=== PATIENT | male | born 1945 | race Caucasian/White ===

== ENCOUNTER → 2018-02-06 | Outpatient (CLI) | payer MEDICARE ==
[~2018-02-06] MED LIST: ACYC400T PO; AEC81 PO; ASCO500T9 PO; ATOM60CA PO; ATOR20TA65 PO; CALC-190 PO; CARV25TA PO; CYAN500 PO; ELET40TA PO; FISH1CAP50 PO; GLUC-172 PO; MAGN100T5 PO; MULT1TAB70 PO; RAMI10CA69 PO; RIVA20TA PO; SAW450CA7 PO; TERA5CAP4 PO; UBID100C45 PO; VITA1CAP85 PO; iron PO
== END | disposition home or self-care (01) ==
LOC: RAH 13:55
PROVIDERS: ATTEND Orthopaedic Surgery
DX: S83.242A Other tear of medial meniscus, current injury, left knee, initial encounter (principal); S80.02XA Contusion of left knee, initial encounter; X58.XXXA Exposure to other specified factors, initial encounter; Y93.89 Activity, other specified; Y92.89 Other specified places as the place of occurrence of the external cause; Y99.8 Other external cause status; M25.462 Effusion, left knee
CPT/HCPCS: 73721

== ENCOUNTER 2018-03-12 06:45 | Day surgery (SDC) | payer MEDICARE ==
[2018-03-06 10:56] VITALS: BP 119/72
[2018-03-06 11:06] LABS: BASOPHILS % (AUTO) 0.2 % (0.0-5.0); EOSINOPHILS % (AUTO) 0.8 % (0.0-8.0); HEMATOCRIT 43.3 % (42-54); LYMPHOCYTES % (AUTO) 17.4 % (21.0-51.0); MEAN CORPUSCULAR HEMOGLOBIN 33.9 pg (27.0-33.0); MEAN CORPUSCULAR HGB CONC 33.9 g/dL (32.0-36.0); MONOCYTES % (AUTO) 7.5 % (3.0-13.0); NEUTROPHILS % (AUTO) 74.1 % (40.0-77.0); NUCLEATED RED BLOOD CELLS 0.1 % (0.0-0.19); PLATELET COUNT (AUTO) 265 K/uL (130-400); RED BLOOD CELL COUNT(AUTO) 4.33 MIL/uL (4.50-6.20); RED CELL DISTRIBUTION WIDTH 13.1 % (11.0-15.5)
[2018-03-06 11:18] LABS: CREATININE 0.8 mg/dL (0.5-1.5); POTASSIUM 4.8 mmol/L (3.5-5.1)
[2018-03-12] VITALS (14 sets, daily range): BP systolic 109–140; BP diastolic 68–86
[~2018-03-12] VITALS: Ht 182.9 cm; Wt 86.0 kg
[2018-03-12] MEDS: CEFAZOLIN SODIUM 1 GM VIAL IVP SCH ×2 (05:00→08:25)
[~2018-03-12 06:45] MED LIST changes: -AEC81 PO; +AMLO5TAB9 PO; -CYAN500 PO; +IRON PEG; -iron PO
[2018-03-12] MEDS ORDERED: LACTATED RINGERS 1000ML 1,000 ML IV ONE (07:11)
[2018-03-12] MEDS ORDERED: MIDAZOLAM HCL 1 MG/ML 2ML VIAL ONE (07:24)
[2018-03-12] MEDS ORDERED: LIDOCAINE PF 2% 5ML ABBOJECT ONE (07:24)
[2018-03-12] MEDS ORDERED: PROPOFOL 10 MG/ML 20ML VIAL IV ONE (07:24)
[2018-03-12] MEDS ORDERED: ONDANSETRON HCL 4 MG/2 ML VIAL ONE (07:24)
[2018-03-12] MEDS ORDERED: FENTANYL CITRATE PF 50 MCG/1 ML 2ML VIAL ONE (07:25)
[2018-03-12] MEDS ORDERED: ROCURONIUM 10MG/1ML SYR 10 MG/ML ML ONE (07:25)
[2018-03-12] MEDS ORDERED: BUPIVACAINE/EPI/PF 0.25% 50 ML VIAL ONE (07:35)
[2018-03-12] MEDS ORDERED: EPHEDRINE SULFATE 50 MG/ML AMPULE ONE (08:34)
[2018-03-12] MEDS ORDERED: PHENYLEPHRINE HCL 10 MG/ML 1ML VIAL IV ONE (08:44)
[2018-03-12] MEDS ORDERED: NEOSTIGMINE 5MG/5ML SYR IV ONE (08:58)
[2018-03-12] MEDS ORDERED: GLYCOPYRROLATE 1 MG/5 ML SYRINGE ONE (08:58)
--- NOTE | 2018-03-12 10:15 | NUR ---
NEW PT received pt from PACU, S/P LEFT knee arthrsocopy left knee dressing dry and intact, neurovascular checks wnl to left lower extremity, pt awake and alert in bed, vs stable. will continue to monitor
--- NOTE | 2018-03-12 10:46 | NUR ---
dc dc instructions given to pt / pts spouse with rx, instructed to f/ u with dr. reynolds. and hard copy of knee arthroscopy orders given to them in detailed, pt /spouse verbalized understanding. piv removed, catheter intact, site asymtomatic, pt getting dress and will be discharge
--- NOTE | 2018-03-12 10:55 | NUR ---
dc pt dc home via w/c ,no distress noted. pt has crutches already form home . accompanied by spouse .
== END 2018-03-12 10:55 | disposition home or self-care (01) ==
LOC: DAH 06:45
PROVIDERS: ATTEND Orthopaedic Surgery
DX: M23.204 Derangement of unspecified medial meniscus due to old tear or injury, left knee (principal); M23.201 Derangement of unspecified lateral meniscus due to old tear or injury, left knee; M22.42 Chondromalacia patellae, left knee; Z79.899 Other long term (current) drug therapy; Z98.890 Other specified postprocedural states; E78.00 Pure hypercholesterolemia, unspecified; I10 Essential (primary) hypertension; I48.91 Unspecified atrial fibrillation; M19.90 Unspecified osteoarthritis, unspecified site
CPT/HCPCS: 29880; 36415; 80048; 85025; A4218; A4248; A4606; A4649 ×3; A4930; A6223; J0690; J2001; J2250; J2370; J2405; J2704; J2710; J3010; J3490 ×3; J7120 ×2

== ENCOUNTER 2019-08-05 09:03 | Day surgery (SDC) | payer MEDICARE ==
[2019-08-02 09:35] VITALS: BP 99/75; PULSE 77; RESP 18; TEMP 97.2
[~2019-08-05] VITALS: Ht 182.9 cm; Wt 90.4 kg
[2019-08-05] VITALS (17 sets, daily range): BP systolic 104–141; BP diastolic 54–82; PULSE 72–92; RESP 13–20; TEMP 97.1–98.1
[~2019-08-05 09:03] MED LIST changes: -ACYC400T PO; -AMLO5TAB9 PO; -ASCO500T9 PO; -ATOM60CA PO; -ATOR20TA65 PO; -CALC-190 PO; -CARV25TA PO; -ELET40TA PO; -FISH1CAP50 PO; +GENTAMICIN 80 MG/NS 100 ML PB 100 ML IV SCH; -GLUC-172 PO; -IRON PEG; -MAGN100T5 PO; -MULT1TAB70 PO; -RAMI10CA69 PO; -RIVA20TA PO; -SAW450CA7 PO; -TERA5CAP4 PO; -UBID100C45 PO; -VITA1CAP85 PO
[2019-08-05] MEDS ORDERED: LACTATED RINGERS 1000ML 1,000 ML IV ONE (10:30)
[2019-08-05] MEDS: CEFTRIAXONE SODIUM 1 GM IVP SCH ×2 (10:30→12:39)
[2019-08-05] MEDS ORDERED: LIDOCAINE PF 2% 5ML ABBOJECT ONE (12:19)
[2019-08-05] MEDS ORDERED: DEXAMETHASONE SOD PHOSPHATE 10MG/ML 1ML VIAL ONE (12:19)
[2019-08-05] MEDS ORDERED: SUCCINYLCHOLINE 200MG/10ML SYR ONE (12:19)
[2019-08-05] MEDS ORDERED: MIDAZOLAM HCL 1 MG/ML 2ML VIAL ONE (12:20)
[2019-08-05] MEDS ORDERED: ROCURONIUM 10MG/1ML SYR 10 MG/ML ML ONE (12:20)
[2019-08-05] MEDS ORDERED: FENTANYL CITRATE PF 50 MCG/1 ML 2ML VIAL ONE (12:20)
[2019-08-05] MEDS ORDERED: PROPOFOL 10 MG/ML 20ML VIAL IV ONE (12:20)
[2019-08-05] MEDS ORDERED: ONDANSETRON HCL 4 MG/2 ML VIAL ONE (12:20)
[2019-08-05] MEDS ORDERED: GLYCOPYRROLATE 1 MG/5 ML SYRINGE ONE (12:20)
[2019-08-05] MEDS ORDERED: NEOSTIGMINE 5MG/5ML SYR IV ONE (12:20)
[2019-08-05] MEDS ORDERED: EPHEDRINE SULFATE 50 MG/ML AMPULE ONE (13:07)
== END 2019-08-05 15:38 | disposition home or self-care (01) ==
LOC: DAH 09:03
PROVIDERS: ATTEND Urology
DX: N40.0 Benign prostatic hyperplasia without lower urinary tract symptoms (principal); Z11.59 Encounter for screening for other viral diseases; I10 Essential (primary) hypertension; I48.91 Unspecified atrial fibrillation; M19.90 Unspecified osteoarthritis, unspecified site; G43.909 Migraine, unspecified, not intractable, without status migrainosus; Z98.890 Other specified postprocedural states; Z91.048 Other nonmedicinal substance allergy status; Z79.899 Other long term (current) drug therapy; Z79.01 Long term (current) use of anticoagulants; Z87.891 Personal history of nicotine dependence; Z83.3 Family history of diabetes mellitus
CPT/HCPCS: 36415; 55700; 76942; 80048; 81003; 85025; 87088; 88305; 88341; 88342; 93005; 96365; A4215 ×2; A4221; A4222; A4223 ×2; A4600; A4657; A4663; A4930; A6260; J0330; J0696; J1100; J2001; J2250; J2405; J2704; J2710; J3010; J3490 ×2; J7030; J7120; U0003

== ENCOUNTER → 2023-03-31 | Outpatient (CLI) | payer MEDICARE ==
[~2023-03-31] MED LIST changes: +ACYC400T20 PO; +AMLO-257 PO; +ASCO500T20 PO; +ATOM60CA PO; +ATOR20TA65 PO; +CALC-190 PO; +CARV25TA PO; +ELET40TA PO; +FISH1CAP50 PO; -GENTAMICIN 80 MG/NS 100 ML PB 100 ML IV SCH; +GLUC-172 PO; +HYDR12.54 PO; +IRON PO; +MAGN100T5 PO; +MULT-660 PO; +RAMI10CA69 PO; +RIVA20TA PO; +SAW450CA7 PO; +TERA5CAP4 PO; +UBID100C45 PO; +VITA1CAP85 PO
== END | disposition home or self-care (01) ==
LOC: RAH 08:43
PROVIDERS: ATTEND Internal Medicine Cardiovascular Disease
DX: I25.10 Atherosclerotic heart disease of native coronary artery without angina pectoris (principal); I48.20 Chronic atrial fibrillation, unspecified
CPT/HCPCS: 78452; 96374; 93017; A9500 ×2

== ENCOUNTER → 2024-03-18 | Outpatient (CLI) | payer MEDICARE ==
[~2024-03-18] MED LIST changes: -ACYC400T20 PO; +APIX5TAB PO; +FERR-82 PO; -IRON PO; -RAMI10CA69 PO; +RAMI10CA76 PO; -RIVA20TA PO
--- NOTE | 2024-03-18 11:21 | HMCIMG ---
DEXA BONE DENSITY SURVEY HISTORY: Bone density disorder COMPARISON: None FINDINGS: Bone densitometry study was performed. Bone mineral density of the lumbar spine is 1.113 gram per centimeter square which corresponds to a T score of 0.2 and a Z score of 1.4. Bone mineral density of the left hip is 0.793 grams per centimeter square which corresponds to a T score of -1.6 and a Z score of -0.6. IMPRESSION: 1. Normal bone of the lumbar spine and bone osteopenia of left hip.
== END | disposition home or self-care (01) ==
LOC: RAH 08:12
PROVIDERS: ATTEND Internal Medicine
DX: M85.88 Other specified disorders of bone density and structure, other site (principal)
CPT/HCPCS: 77080

== ENCOUNTER → 2025-01-03 | Outpatient (CLI) | payer MEDICARE ==
--- NOTE | 2025-01-04 01:02 | HMCIMG ---
EXAM: CT Abdomen and Pelvis Without IV contrast CLINICAL HISTORY: Unspecified urinary retention. Compare with previous CT. TECHNIQUE: Axial computed tomography images of the abdomen and pelvis without intravenous contrast. CONTRAST: No IV contrast. COMPARISON: None provided. FINDINGS: LUNG BASES: Hyperinflated lung goetz with mild bronchitic and bronchiolitic changes in bilateral lower lobes. No focal consolidation or effusion. LIVER: Fatty liver with multiple hypodense cystic lesions in both lobes, the largest measuring 6 ??? 5.5 cm. No solid mass identified. GALLBLADDER AND BILE DUCTS: Normal. No radioopaque calculus or biliary dilatation. PANCREAS: Unremarkable. SPLEEN: Normal in size and attenuation. ADRENAL GLANDS: Unremarkable. KIDNEYS, URETERS, AND BLADDER: Normal renal size and attenuation. No hydronephrosis, hydroureter, or calculus. STOMACH AND BOWEL: Mild faecal impaction in the large bowel and rectum. Uncomplicated colonic diverticulosis. No obstruction or mural thickening. APPENDIX: Appendix measures 0.3 cm. No wall thickening or chriss-appendiceal stranding. PERITONEUM: No free fluid or pneumoperitoneum. LYMPH NODES: No lymphadenopathy. REPRODUCTIVE ORGANS: Within normal limits for age. VASCULATURE: No aneurysm. BONES: Right total hip arthroplasty with intact alignment and no hardware complication. Moderate to severe thoracolumbar spondylosis with advanced facet degeneration at L3???L4 through L5???S1. Dextroscoliotic deformity of thoracolumbar spine with Hunt???s angle <10???. 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 IMPRESSION: * Fatty liver with multiple benign-appearing hepatic cysts, largest 6 ??? 5.5 cm. * Right hip arthroplasty without hardware complication. 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 * Uncomplicated colonic diverticulosis with mild fecal loading. * No acute intra-abdominal or pelvic abnormality. * Radiologic???Clinical Correlation: Findings consistent with chronic degenerative and metabolic changes. No imaging evidence of acute cause for urinary retention; correlate with bladder function and prior imaging if available. /[place]
== END | disposition home or self-care (01) ==
LOC: RAH 10:12
PROVIDERS: ATTEND Urology
DX: K76.0 Fatty (change of) liver, not elsewhere classified (principal); K56.41 Fecal impaction; K57.30 Diverticulosis of large intestine without perforation or abscess without bleeding; M47.815 Spondylosis without myelopathy or radiculopathy, thoracolumbar region; R33.9 Retention of urine, unspecified; R91.8 Other nonspecific abnormal finding of lung field; J98.4 Other disorders of lung; M47.817 Spondylosis without myelopathy or radiculopathy, lumbosacral region; M41.85 Other forms of scoliosis, thoracolumbar region; J98.6 Disorders of diaphragm; Z96.641 Presence of right artificial hip joint
CPT/HCPCS: 74176